=== PATIENT | female | born 1980 | race Hispanic/Latino ===

== ENCOUNTER 2018-01-04 11:38 | Emergency (ER) | payer SELFPAY ==
[2018-01-04 12:34] LABS: Red Blood Count 4.41 M/mm3 (3.65-5.03)
[2018-01-04 12:35] LABS: Basophils # (Auto) 0.1 K/mm3 (0.0-0.1); Basophils % (Auto) 1.1 % (0.0-1.8); Eosinophils # (Auto) 0.4 K/mm3 (0.0-0.4); Eosinophils % (Auto) 4.1 % (0.0-4.3); Hematocrit 38.2 % (30.3-42.9); Hemoglobin 12.5 gm/dl (10.1-14.3); Lymphocytes # (Auto) 2.9 K/mm3 (1.2-5.4); Lymphocytes % (Auto) 27.1 % (13.4-35.0); Mean Corpuscular HGB Conc 33 % (30-34); Mean Corpuscular Hemoglobin 28 pg (28-32); Mean Corpuscular Volume 87 fl (79-97); Monocytes # (Auto) 0.7 K/mm3 (0.0-0.8); Monocytes % (Auto) 6.7 % (0.0-7.3); Platelet Count 358 K/mm3 (140-440); Red Cell Distribution Width 15.4 % (13.2-15.2)
[2018-01-04 12:47] LABS: INR 0.95 (0.87-1.13)
[2018-01-04 12:51] LABS: BUN/Creatinine Ratio 19; Blood Urea Nitrogen 13 mg/dL (7-17); Calcium 9.4 mg/dL (8.4-10.2); Hemolysis Index 5
--- NOTE | 2018-01-04 14:15 | XRay Report ---
FINAL REPORT EXAM: XR CHEST ROUTINE 2V HISTORY: CP worsened by inspiration TECHNIQUE: Frontal and lateral chest x-ray. PRIORS: None. FINDINGS: Cardiac and mediastinal silhouette within normal limits. Lungs are normally expanded, without significant vascular congestion. No focal consolidation, pleural effusion or apparent pneumothorax. Bony thorax without acute abnormality. IMPRESSION: 1. No acute findings.
[2018-01-04 14:32] VITALS: BP 112/77
== END 2018-01-04 15:16 | disposition left against medical advice (07) ==
LOC: ED 11:38
DX: R07.9 Chest pain, unspecified (principal); Z53.21 Procedure and treatment not carried out due to patient leaving prior to being seen by health care provider
CPT/HCPCS: 36415; 71046; 80048; 84484; 84703; 85025; 85610; 93005; 93010

== ENCOUNTER 2018-01-06 01:44 | Observation (INO) | payer BC ==
[2018-01-06] MEDS ORDERED: ASPIRIN PO ONE (01:58)
[2018-01-06 02:21] LABS: Basophils # (Auto) 0.1 K/mm3 (0.0-0.1); Basophils % (Auto) 1.1 % (0.0-1.8); Eosinophils # (Auto) 0.5 K/mm3 (0.0-0.4); Eosinophils % (Auto) 4.6 % (0.0-4.3); Hematocrit 38.4 % (30.3-42.9); Lymphocytes # (Auto) 3.9 K/mm3 (1.2-5.4); Lymphocytes % (Auto) 37.4 % (13.4-35.0); Mean Corpuscular HGB Conc 34 % (30-34); Mean Corpuscular Hemoglobin 29 pg (28-32); Mean Corpuscular Volume 86 fl (79-97); Monocytes # (Auto) 0.6 K/mm3 (0.0-0.8); Monocytes % (Auto) 5.9 % (0.0-7.3); Platelet Count 312 K/mm3 (140-440); Red Blood Count 4.45 M/mm3 (3.65-5.03); Red Cell Distribution Width 15.6 % (13.2-15.2)
[2018-01-06 02:34] LABS: BUN/Creatinine Ratio 27; Blood Urea Nitrogen 16 mg/dL (7-17); Calcium 9.1 mg/dL (8.4-10.2); Hemolysis Index 17
--- NOTE | 2018-01-06 06:30 | Emergency Department Report ---
ED Chest Pain HPI - General Chief Complaint: Chest Pain Stated Complaint: CHEST PAIN Time Seen by Provider: 01/06/18 06:12 Source: patient Mode of arrival: Ambulatory Limitations: No Limitations - History of Present Illness Initial Comments: Patient is a 37-year-old female presents to emergency room with chest pain shortness of breath 3 days. Patient states that the pain is in her middle chest and is nonradiating. Patient states that the pain is severe and is a 9- 10 out of 10. Patient denies diaphoresis. Patient denies fever and chills. Patient denies abdominal pain. Patient states she had a sick FOR 2 days ago 1 , positive LOC for a minimal amount of time no trauma. Patient states she has a history of DVT and PE. Patient states she has an IVC filter in place and patient is not on anticoagulation therapy MD Complaint: chest pain -: Sudden, days(s) (3 days) Onset: during rest Pain Radiation: none Severity: severe Severity scale (0 -10): 9 Quality: sharp Consistency: constant Improves With: rest Worsens With: exertion re: dyspnea. denies: nausea, vomting, diaphoresis, sense of impending doom Other Symptoms: syncope. denies: cough, fever, rash, acid taste in mouth, leg swelling, palpitations, burping Treatments Prior to Arrival: none Aspirin use within the Past 7 Days: (0) No - Related Data On Oral Contraceptives: No Home Medications Medication Instructions Recorded Confirmed Last Taken Duloxetine HCl [Cymbalta] 30 mg PO QAM 01/06/18 01/06/18 01/05/18 Gabapentin [Neurontin] 600 mg PO Q8H 01/06/18 01/06/18 01/05/18 Lacosamide [Vimpat] 200 mg PO BID 01/06/18 01/06/18 01/05/18 Lurasidone HCl [Latuda] 20 mg PO QDAY 01/06/18 01/06/18 01/05/18 Melatonin 10 mg PO QHS 01/06/18 01/06/18 01/05/18 Suvorexant [Belsomra] 20 mg PO QHS 01/06/18 01/06/18 01/05/18 busPIRone [Buspar] 15 mg PO TID 01/06/18 01/06/18 01/05/18 Allergies Allergy/AdvReac Type Severity Reaction Status Date / Time Iodinated Contrast- Oral and AdvReac Mild Hives Verified 07/23/15 12:50 IV Dye [Iodinated Contrast Media - IV Dye] Cephalosporins AdvReac Hives Verified 07/23/15 12:50 Penicillins AdvReac Hives Verified 07/23/15 12:50 sumatriptan [From Imitrex] AdvReac Anaphylaxis Verified 07/23/15 12:50 sumatriptan succinate AdvReac Anaphylaxis Verified 07/23/15 12:50 [From Imitrex] Heart Score - HEART Score History: Slightly suspicious EKG: Normal Age: < 45 Risk factors: No known risk factors Troponin: < normal limit HEART Score: 0 ED Review of Systems ROS: Stated complaint: CHEST PAIN Other details as noted in HPI Constitutional: denies: chills, fever Eyes: denies: eye pain, eye discharge, vision change ENT: denies: ear pain, throat pain Respiratory: shortness of breath. denies: cough, wheezing Cardiovascular: chest pain. denies: palpitations Endocrine: no symptoms reported Gastrointestinal: denies: abdominal pain, nausea, diarrhea Genitourinary: denies: urgency, dysuria, discharge Musculoskeletal: denies: back pain, joint swelling, arthralgia Skin: denies: rash, lesions Neurological: denies: headache, weakness, paresthesias Psychiatric: denies: anxiety, depression Hematological/Lymphatic: denies: easy bleeding, easy bruising ED Past Medical Hx - Past Medical History Previous Medical History?: Yes Hx Deep Vein Thrombosis: Yes Hx Pulmonary Embolism: Yes Hx Headaches / Migraines: Yes Hx Seizures: Yes Hx Psychiatric Treatment: Yes (DEPRESSION) Hx Asthma: Yes Additional medical history: PCOS. SPONDILITIS - Surgical History Past Surgical History?: Yes Additional Surgical History: IVC filter - Family History Family history: hypertension - Social History Smoking Status: Never Smoker Substance Use Type: None - Medications Home Medications: Home Medications Medication Instructions Recorded Confirmed Last Taken Type Duloxetine HCl [Cymbalta] 30 mg PO QAM 01/06/18 01/06/18 01/05/18 History Gabapentin [Neurontin] 600 mg PO Q8H 01/06/18 01/06/18 01/05/18 History Lacosamide [Vimpat] 200 mg PO BID 01/06/18 01/06/18 01/05/18 History Lurasidone HCl [Latuda] 20 mg PO QDAY 01/06/18 01/06/18 01/05/18 History Melatonin 10 mg PO QHS 01/06/18 01/06/18 01/05/18 History Suvorexant [Belsomra] 20 mg PO QHS 01/06/18 01/06/18 01/05/18 History busPIRone [Buspar] 15 mg PO TID 01/06/18 01/06/18 01/05/18 History ED Physical Exam - General Limitations: No Limitations General appearance: alert, in no apparent distress - Head Head exam: Present: atraumatic, normocephalic - Eye Eye exam: Present: normal appearance - ENT ENT exam: Present: mucous membranes moist - Neck Neck exam: Present: normal inspection - Respiratory Respiratory exam: Present: normal lung sounds bilaterally. Absent: respiratory distress - Cardiovascular Cardiovascular Exam: Present: regular rate, normal rhythm. Absent: systolic murmur, diastolic murmur, rubs, gallop - GI/Abdominal GI/Abdominal exam: Present: soft, normal bowel sounds. Absent: distended, tenderness, guarding - Extremities Exam Extremities exam: Present: normal inspection - Back Exam Back exam: Present: normal inspection - Neurological Exam Neurological exam: Present: alert, oriented X3 - Psychiatric Psychiatric exam: Present: normal affect, normal mood - Skin Skin exam: Present: warm, dry, intact, normal color. Absent: rash ED Course Vital Signs 01/06/18 01/06/18 01/06/18 01:55 02:30 02:34 Temperature 98.0 F Pulse Rate 140 H 109 H Respiratory 16 Rate Blood Pressure 131/91 104/69 O2 Sat by Pulse 98 Oximetry 01/06/18 01/06/18 01/06/18 02:45 03:00 03:15 Temperature Pulse Rate 101 H 100 H 102 H Respiratory 13 14 17 Rate Blood Pressure 114/77 109/74 114/70 O2 Sat by Pulse Oximetry 01/06/18 01/06/18 01/06/18 03:30 03:45 04:00 Temperature Pulse Rate 103 H 97 H 102 H Respiratory 14 15 20 Rate Blood Pressure 89/52 118/74 112/78 O2 Sat by Pulse 97 99 Oximetry 01/06/18 01/06/18 01/06/18 04:15 04:30 07:00 Temperature Pulse Rate 102 H 100 H 103 H Respiratory 11 L 14 23 Rate Blood Pressure 113/72 114/81 110/65 O2 Sat by Pulse 98 98 96 Oximetry 01/06/18 01/06/18 01/06/18 07:15 07:57 08:00 Temperature 97.9 F Pulse Rate 92 H Respiratory 19 Rate Blood Pressure 99/53 106/65 O2 Sat by Pulse 99 95 Oximetry 01/06/18 01/06/18 01/06/18 08:16 08:30 08:46 Temperature Pulse Rate Respiratory Rate Blood Pressure 106/65 106/65 106/65 O2 Sat by Pulse 95 95 94 Oximetry 01/06/18 01/06/18 01/06/18 09:00 09:16 09:30 Temperature Pulse Rate Respiratory Rate Blood Pressure 95/71 106/61 106/61 O2 Sat by Pulse 94 96 96 Oximetry 01/06/18 01/06/18 01/06/18 09:46 10:00 10:10 Temperature 97.9 F Pulse Rate 108 H Respiratory Rate Blood Pressure 106/61 98/75 O2 Sat by Pulse 97 97 Oximetry - Reevaluation(s) Reevaluation #1: Discussed all results with patient. Patient agrees with admission and plan of care. 01/06/18 09:00 - Consultations Consultation #1: Hospitalist consulted for admission. Hospitalist to admit patient. Bridge orders placed for hospitalist 01/06/18 09:01 LAUREL score - Laurel Score Age > 65: (0) No Aspirin use within the Past 7 Days: (0) No 3 or more CAD Risk Factors: (0) No 2 or more Angina events in past 24 hrs: (0) No Known CAD with more than 50% Stenosis: (0) No Elevated Cardiac Markers: (0) No ST Deviation Greater than 0.5mm: (0) No LAUREL Score: 0 ED Medical Decision Making - Lab Data Result diagrams: 01/06/18 02:07 01/06/18 02:07 - EKG Data -: EKG Interpreted by Me EKG shows normal: sinus rhythm, axis, intervals, QRS complexes, ST-T waves Rate: tachycardia - Radiology Data Radiology results: report reviewed CTA chest: SOB; DVT history. Following intravenous administration of contrast transverse sections were obtained through the chest using pulmonary embolus protocol. Coronal and sagittal 2-D reformatted images included. There is moderate opacification of the pulmonary vessels with good opacification of the cardiac chambers and thoracic aorta. No filling defects identified. The thoracic aorta is normal in size and contour. No adenopathy appreciated. The central airways are patent and in normal position. There appears to be diffuse mild edema throughout the lungs with small bilateral pleural effusions at the lung bases. The left ventricle measures slightly larger than on prior examination in July 2015 however this could be related to cardiac cycle. Impression: Mild pulmonary edema changes. No pulmonary embolus identified. Transcribed By: EVAN Dictated By: NATALIE TOTH MD Electronically Authenticated By: NATALIE TOTH MD Signed Date/Time: 01/06/18 0460 - Medical Decision Making Patient is a 37-year-old female presents to emergency room with complaints of chest pain shortness of breath 3 days. Patient also had a syncopal episode 2 days ago. Patient found to have pulmonary edema on CTA but no PE noted patient to be admitted to hospital service for further evaluation and treatment. Further well need done to identify the cause of his syncopal episode. - Differential Diagnosis cp. sob. acs. pe. chf. Critical care attestation.: If time is entered above; I have spent that time in minutes in the direct care of this critically ill patient, excluding procedure time. ED Disposition Clinical Impression: Shortness of breath Chest pain Qualifiers: Chest pain type: unspecified Qualified Code(s): R07.9 - Chest pain, unspecified Pulmonary edema Qualifiers: Chronicity: acute Qualified Code(s): J81.0 - Acute pulmonary edema Syncopal episodes Qualifiers: Syncope type: unspecified Qualified Code(s): R55 - Syncope and collapse Disposition: 09 OP ADMIT IP TO THIS HOSP Is pt being admited?: Yes Does the pt Need Aspirin: No Condition: Serious Time of Disposition: 09:02
[2018-01-06] MEDS ORDERED: BENADRYL IV ONE (06:47)
[2018-01-06] MEDS ORDERED: MORPHINE IV ONE (06:47)
[2018-01-06] MEDS ORDERED: SOLU-Medrol IV ONE (06:47)
[2018-01-06] MEDS ORDERED: NACL 0.9% 50 ML ONE (06:50)
--- NOTE | 2018-01-06 07:53 | Cat Scan Report ---
CTA chest: SOB; DVT history. Following intravenous administration of contrast transverse sections were obtained through the chest using pulmonary embolus protocol. Coronal and sagittal 2-D reformatted images included. There is moderate opacification of the pulmonary vessels with good opacification of the cardiac chambers and thoracic aorta. No filling defects identified. The thoracic aorta is normal in size and contour. No adenopathy appreciated. The central airways are patent and in normal position. There appears to be diffuse mild edema throughout the lungs with small bilateral pleural effusions at the lung bases. The left ventricle measures slightly larger than on prior examination in July 2015 however this could be related to cardiac cycle. Impression: Mild pulmonary edema changes. No pulmonary embolus identified.
[2018-01-06] MEDS ORDERED: DILAUDID IV ONE (09:26)
[2018-01-06] MEDS ORDERED: ZOFRAN IV PRN (12:36)
[2018-01-06] MEDS ORDERED: SODIUM CHLORIDE FLUSH SYRINGE 10 ML IV PRN (12:36)
[2018-01-06] MEDS ORDERED: TYLENOL PO PRN (12:36)
--- NOTE | 2018-01-06 12:54 | History and Physical Report ---
History of Present Illness Date of admission: 01/06/18 09:12 Medications and Allergies Allergies Allergy/AdvReac Type Severity Reaction Status Date / Time Iodinated Contrast- Oral and AdvReac Mild Hives Verified 07/23/15 12:50 IV Dye [Iodinated Contrast Media - IV Dye] Cephalosporins AdvReac Hives Verified 07/23/15 12:50 Penicillins AdvReac Hives Verified 07/23/15 12:50 sumatriptan [From Imitrex] AdvReac Anaphylaxis Verified 07/23/15 12:50 sumatriptan succinate AdvReac Anaphylaxis Verified 07/23/15 12:50 [From Imitrex] Home Medications Medication Instructions Recorded Confirmed Last Taken Type Duloxetine HCl [Cymbalta] 30 mg PO QAM 01/06/18 01/06/18 01/05/18 History Gabapentin [Neurontin] 600 mg PO Q8H 01/06/18 01/06/18 01/05/18 History Lacosamide [Vimpat] 200 mg PO BID 01/06/18 01/06/18 01/05/18 History Lurasidone HCl [Latuda] 20 mg PO QDAY 01/06/18 01/06/18 01/05/18 History Melatonin 10 mg PO QHS 01/06/18 01/06/18 01/05/18 History Suvorexant [Belsomra] 20 mg PO QHS 01/06/18 01/06/18 01/05/18 History busPIRone [Buspar] 15 mg PO TID 01/06/18 01/06/18 01/05/18 History Active Meds: Active Medications Acetaminophen (Tylenol) 650 mg PO Q4H PRN PRN Reason: Pain MILD(1-3)/Fever >100.5/SANCHEZ Buspirone HCl (Buspar) 15 mg PO TID BRANDON Duloxetine HCl (Cymbalta) 30 mg PO QAM BRANDON Miscellaneous Medication (Gabapentin [Neurontin]) 600 mg PO Q8H BRANDON Miscellaneous Medication (Lacosamide [Vimpat]) 200 mg PO BID BRANDON Miscellaneous Medication (Lurasidone Hcl [Latuda]) 20 mg PO QDAY BRANDON Miscellaneous Medication (Melatonin [Melatonin]) 10 mg PO QHS BRANDON Miscellaneous Medication (Suvorexant [Belsomra]) 20 mg PO QHS BRANDON Ondansetron HCl (Zofran) 4 mg IV Q8H PRN PRN Reason: Nausea And Vomiting Oxycodone/Acetaminophen (Percocet 5/325) 1 tab PO Q6H PRN PRN Reason: Pain, Moderate (4-6) Sodium Chloride (Sodium Chloride Flush Syringe 10 Ml) 10 ml IV BID BRANDON Sodium Chloride (Sodium Chloride Flush Syringe 10 Ml) 10 ml IV PRN PRN PRN Reason: LINE FLUSH Exam - Constitutional Vitals: Temp Pulse Resp BP Pulse Ox 97.9 F 108 H 19 98/75 97 01/06/18 10:10 01/06/18 10:10 01/06/18 07:15 01/06/18 10:00 01/06/18 10:00 Results - Labs CBC & Chem 7: 01/06/18 02:07 01/06/18 02:07 Labs: Laboratory Last Values WBC 10.5 K/mm3 (4.5-11.0) 01/06/18 02:07 RBC 4.45 M/mm3 (3.65-5.03) 01/06/18 02:07 Hgb 13.0 gm/dl (10.1-14.3) 01/06/18 02:07 Hct 38.4 % (30.3-42.9) 01/06/18 02:07 MCV 86 fl (79-97) 01/06/18 02:07 MCH 29 pg (28-32) 01/06/18 02:07 MCHC 34 % (30-34) 01/06/18 02:07 RDW 15.6 % (13.2-15.2) H 01/06/18 02:07 Plt Count 312 K/mm3 (140-440) 01/06/18 02:07 Lymph % (Auto) 37.4 % (13.4-35.0) H 01/06/18 02:07 Atkinson % (Auto) 5.9 % (0.0-7.3) 01/06/18 02:07 Eos % (Auto) 4.6 % (0.0-4.3) H 01/06/18 02:07 Baso % (Auto) 1.1 % (0.0-1.8) 01/06/18 02:07 Lymph # 3.9 K/mm3 (1.2-5.4) 01/06/18 02:07 Atkinson # 0.6 K/mm3 (0.0-0.8) 01/06/18 02:07 Eos # 0.5 K/mm3 (0.0-0.4) H 01/06/18 02:07 Baso # 0.1 K/mm3 (0.0-0.1) 01/06/18 02:07 Seg Neutrophils % 51.0 % (40.0-70.0) 01/06/18 02:07 Seg Neutrophils # 5.4 K/mm3 (1.8-7.7) 01/06/18 02:07 Sodium 137 mmol/L (137-145) 01/06/18 02:07 Potassium 4.2 mmol/L (3.6-5.0) 01/06/18 02:07 Chloride 100.8 mmol/L (98-107) 01/06/18 02:07 Carbon Dioxide 22 mmol/L (22-30) 01/06/18 02:07 Anion Gap 18 mmol/L 01/06/18 02:07 BUN 16 mg/dL (7-17) 01/06/18 02:07 Creatinine 0.6 mg/dL (0.7-1.2) L 01/06/18 02:07 Estimated GFR > 60 ml/min 01/06/18 02:07 BUN/Creatinine Ratio 27 % 01/06/18 02:07 Glucose 105 mg/dL (65-100) H 01/06/18 02:07 Calcium 9.1 mg/dL (8.4-10.2) 01/06/18 02:07 Troponin T < 0.010 ng/mL (0.00-0.029) 01/06/18 07:36 NT-Pro-B Natriuret Pep 6.57 pg/mL (0-450) 01/06/18 07:36 HCG, Qual Negative (Negative) 01/06/18 02:07 Assessment and Plan Assessment and plan: 37F with hx of PE/DVT who pw chest pain Chest pain -CTA neg for PE -obtain Dopplers of LE -serial trops, -stress test in am
[2018-01-06] MEDS ORDERED: BUSPAR PO SCH (14:00)
[2018-01-06] MEDS: BUSPAR PO SCH ×2 (16:30→21:31)
[2018-01-06] MEDS: NEURONTIN PO SCH ×2 (16:30→21:32)
[2018-01-06] MEDS: PERCOCET 5/325 PO PRN ×2 (16:31→22:47)
[2018-01-06] MEDS: VIMPAT PO SCH (21:32)
[2018-01-06] MEDS ORDERED: NON-FORMULARY (Melatonin [Melatonin] 10 MG) PO SCH (22:00)
[2018-01-06] MEDS ORDERED: SUVOREXANT 20 MG PO SCH (22:00)
[2018-01-06] MEDS ORDERED: SODIUM CHLORIDE FLUSH SYRINGE 10 ML IV SCH (22:00)
[2018-01-06] MEDS ORDERED: AMBIEN PO PRN (22:35)
[2018-01-07] MEDS ORDERED: LOPRESSOR IV ONE (02:01)
[2018-01-07] MEDS: MORPHINE IV PRN ×2 (02:23→11:36)
[2018-01-07] MEDS: PERCOCET 5/325 PO PRN (05:38)
[2018-01-07] MEDS: NEURONTIN PO SCH (05:38)
[2018-01-07] MEDS ORDERED: LEXISCAN IV ONE ×2 (08:04→08:14)
[2018-01-07 09:50] VITALS: BP 99/61
[2018-01-07] MEDS ORDERED: CYMBALTA PO SCH (10:00)
[2018-01-07] MEDS ORDERED: LURASIDONE HCL 20 MG PO SCH (10:00)
[2018-01-07] MEDS: VIMPAT PO SCH (10:12)
[2018-01-07] MEDS: BUSPAR PO SCH (10:12)
--- NOTE | 2018-01-07 13:07 | Discharge Summary ---
Providers - Providers Date of Admission: 01/06/18 09:12 Attending physician: MAIDA CHACON MD Primary care physician: MARITZA GARSIA MD Hospitalization Condition: Serious Exam - Constitutional Vitals: Temp Pulse Resp BP Pulse Ox 98.5 F 110 H 20 99/61 95 01/07/18 06:40 01/07/18 08:33 01/07/18 06:40 01/07/18 08:33 01/07/18 06:40 Plan Follow up with: MARITZA GARSIA MD [Primary Care Provider] - 3-5 Days
--- NOTE | 2018-01-10 00:27 | Treadmill Report ---
THALLIUM STRESS TEST REPORT LEFT VENTRICLE: Left ventricular chamber size is within normal spread. Perfusion study demonstrates homogeneous uptake of the tracer in all segments. There is normal apical thinning. Gated analysis demonstrates normal left ventricular systolic function, ejection fraction of 61%. CONCLUSION: Normal myocardial perfusion study. JOB# [id number] CA/NTS
--- NOTE | 2018-01-11 11:23 | Query- Chest Pain ---
Al[facility] Haynes____[place] Date:___01/11/2018 Dining Room Attendant Cafeteria/CDS:___Shayla/Rakel Phone#:___[phone] Exercise your independent professional judgment when responding to query. Questions asked do not imply a particular answer is desired or expected. We greatly appreciate your clarification on this issue. Clinical Documentation States: 37 Year old female was admitted on 01/06/2018 with chest pain and shortness of breath 3 days. Patient states that the pain is in her middle chest and is nonradiating. Patient states that the pain is severe and is a 9-10 out of 10. The ED note stated "Impression: Mild pulmonary edema changes. No pulmonary embolus identified. ED Disposition Clinical Impression: Shortness of breath Chest pain Qualifiers: Chest pain type: unspecified Qualified Code(s): R07.9 - Chest pain, unspecified Pulmonary edema Qualifiers: Chronicity: acute Qualified Code(s): J81.0 - Acute pulmonary edema." Please document the etiology of Chest Pain: [ ] Myocardial Infarction [ ] Pneumonia [ ] Mediastinitis [ x] Costochondritis [ ] Pulmonary Embolism [ ] Coronary Artery Disease [ ] GERD [ ] Other: [ ] Comment/Explanation: Present on Admission: [x ] Yes (Y) [ ] Clinically undeterminable (W) [ ] No(N) Please document response in your Progress Notes and/or Discharge Summary and indicate if the condition was present on admission. ADRIAN
== END 2018-01-07 15:50 | disposition home or self-care (01) ==
LOC: ED 01:44 → INTOOBSV 09:12 → 4A 09:12
PROVIDERS: ADMIT Internal Medicine; ATTEND Internal Medicine
DX: R07.89 Other chest pain (principal); G43.809 Other migraine, not intractable, without status migrainosus; F32.9 Major depressive disorder, single episode, unspecified; J45.909 Unspecified asthma, uncomplicated; Z82.49 Family history of ischemic heart disease and other diseases of the circulatory system; Z86.711 Personal history of pulmonary embolism; Z86.718 Personal history of other venous thrombosis and embolism
CPT/HCPCS: 36415; 71275; 78452; 80048; 83880; 84484; 84703; 85025; 93005; 93010; 93017; 93970; 96374; 96375; 96376; 99285; A9502; G0378; J1170; J1200; J2270; J2405; J2785; J2930; Q9967